=== PATIENT | male | born 1990 | race Two or more races ===

== ENCOUNTER 2022-09-25 17:03 | Emergency (ER) | payer MEDICAID, OTHER ==
[~2022-09-25] VITALS: Ht 170.2 cm; Wt 70.0 kg
[2022-09-25 17:09] VITALS: BP 125/82
== END 2022-09-25 17:36 | disposition home or self-care (01) ==
LOC: EDBD 17:03 → ER 17:03
DX: T40.2X1A Poisoning by other opioids, accidental (unintentional), initial encounter (principal); F15.10 Other stimulant abuse, uncomplicated; R41.82 Altered mental status, unspecified; Z59.00 Homelessness unspecified; Y92.9 Unspecified place or not applicable